=== PATIENT | female | born 1945 | race Caucasian/White ===

== ENCOUNTER 2017-04-23 18:10 | Observation (INO) | payer MEDICARE, MEDICAID ==
[2017-04-23 18:56] LABS: #Lymphocytes 0.5 thou/uL (1.20-3.40); #Monocytes 0.3 thou/uL (0.11-0.59); %Basophils 0.3 % (0.0-1.0); %Eosinophils 0.4 % (0.0-10.0); %Lymphocytes 10.9 % (21.0-51.0); %Monocytes 5.6 % (0.0-10.0); %Neutrophils 82.8 % (42.0-75.0); Hemoglobin 12.5 g/dL (12.0-16.0); Mean Corpuscular HGB CONC 33.1 g/dL (32.0-36.0); Mean Corpuscular Hemoglobin 30.3 pg (27.0-31.0); Mean Corpuscular Volume 91.7 fl (81.0-99.0); Mean Platelet Volume 7.9 fL (7.4-10.4); Platelet Count 213 thou/uL (130-400); RBC Distribution Width 12.5 % (11.5-14.5); Red Blood Cell (RBC) Count 4.12 mill/uL (4.20-5.40); White Blood Cell (WBC) Count 4.9 thou/uL (4.8-10.8)
[2017-04-23 19:16] LABS: ALT (SGPT) 9 U/L (8-55); AST (SGOT) 16 U/L (5-34); Albumin 3.4 g/dL (3.4-4.8); Alkaline Phosphatase 47 U/L (40-150); Anion Gap 11 mmol/L (10-20); BUN (Urea Nitrogen) 34 mg/dL (9.8-20.1); Bilirubin, Total 0.5 mg/dL (0.2-1.2); Calc. Creatinine Clearance 0 mL/min (70-130); Calcium 9.2 mg/dL (7.8-10.44); Carbon Dioxide 28 mmol/L (23-31); Chloride 104 mmol/L (98-107); Estimated GFR-MDRD 40; Globulin 3.8 g/dL (2.4-3.5); Glucose 77 mg/dL (80-115); Potassium 3.3 mmol/L (3.5-5.1); Protein, Total 7.2 g/dL (6.0-8.3); Sodium 140 mmol/L (136-145)
[2017-04-23] MEDS ORDERED: Dextrose 50% Abboject 50 ML SYRINGE ONE (21:06)
[2017-04-23] MEDS ORDERED: Acetaminophen 325 MG TAB PO PRN (22:46)
[2017-04-23] MEDS ORDERED: HumaLOG 300 UNITS/3 ML VIAL SC PRN (22:46)
[2017-04-23] MEDS ORDERED: Dextrose 50% Abboject 50 ML SYRINGE SLOW IVP PRN (22:46)
[2017-04-23] MEDS ORDERED: Ondansetron ODT 4 MG TAB PO PRN (22:46)
[2017-04-23] MEDS ORDERED: Dextrose 5% in Water 1,000 ML IV PRN (22:46)
[2017-04-23 22:51] LABS: Bilirubin Negative (Negative); Blood, Urine Negative (Negative); Clarity CLEAR (Clear); Glucose, Urine (Dipstick) Negative (Negative); Leukocyte Negative (Negative); Nitrite Negative (Negative); Protein, Urine (Dipstick) Negative (Neg-Trace)
[2017-04-24 00:01] VITALS: BMI 32.3
[2017-04-24] MEDS: Dextrose 5 %-0.45 % NaCl 1,000 ML IV SCH ×2 (01:16→17:02)
[2017-04-24 06:41] LABS: Anion Gap 11 mmol/L (10-20); Carbon Dioxide 27 mmol/L (23-31); Chloride 107 mmol/L (98-107); Potassium 3.5 mmol/L (3.5-5.1); Sodium 141 mmol/L (136-145)
[2017-04-24 06:49] LABS: BUN (Urea Nitrogen) 32 mg/dL (9.8-20.1); Calc. Creatinine Clearance 54 mL/min (70-130); Estimated GFR-MDRD 44; Glucose 99 mg/dL (80-115)
--- NOTE | 2017-04-24 08:11 | HP ---
CHIEF COMPLAINT: Hypoglycemia. HISTORY OF PRESENT ILLNESS: The patient is a 72-year-old female with fairly advanced dementia, who p resents with hypoglycemia. Present was the patient's son who was able to give her history as the cindy nance has fairly advanced dementia and was not able to confirm details. Per the patient's son, the irene beaver has had fairly large amount of weight loss recently due to issues with forgetting to eat due to her dementia. The patient's granddaughter does take care of the patient and tries to manage her car e. The patient has been taking oral medications for her diabetes. She is currently on glimepiride 2 mg only once a day; however, she has been on much higher dose in the past. The patient was brought to the hospital due to increasing confusion and slurred speech; however, this has improved when her b lood sugar has improved. Her blood sugar was in the 50s when she first presented. She was given D50 and this momentarily improved her blood sugar; however, it has since gone down agai n. PAST MEDICAL HISTORY: Significant for type 2 diabetes, dementia, hyperlipidemia, hypertension, as we ll as gout. PAST SURGICAL HISTORY: The patient has had prior appendectomy and hernia repair. SOCIAL HISTORY: The patient currently lives at home with her son and granddaughters. REVIEW OF SYSTEMS: Unable to obtain due to dementia. LABORATORY AND X-RAY DATA: The patient's CBC, white count was 4.9, H&H 12 and 37 with a platelet of 213. Sodium was 140, potassium 3.3, chloride 104, bicarb 28, BUN 34, creatinine 1.3 with a glucose o f 77. HOME MEDICATIONS: The patient was on glimepiride, amlodipine, quinapril, fenofibrate, torsemide, hyd rochlorothiazide, metoprolol, colchicine, and Premarin cream. PHYSICAL EXAMINATION: VITAL SIGNS: Blood pressure 131/64, pulse 69, respirations 16, temperature is 97.6. The patient is saturating 100% on room air. PHYSICAL EXAMINATION: GENERAL: The patient is awake and alert; however, she is not oriented to time or place. She does re member her name. HEENT: Pupils equal, round, and reactive to light and accommodation. Extraocular muscles intact. T Ms are clear. No throat. NECK: No JVD. No lymphadenopathy. HEART: Regular rate and rhythm. LUNGS: Clear to auscultation bilaterally. ABDOMEN: Positive bowel sounds. Soft, nontender, nondistended. EXTREMITIES: No clubbing, cyanosis, or edema. NEUROLOGIC: Cranial nerves II-XII are grossly intact. As stated above, she is only oriented to her name. PSYCHIATRIC: The patient is cooperative and pleasant. ASSESSMENT AND PLAN: 1. Hypoglycemia secondary to poor p.o. intake from dementia, as well as recent weight loss from this . We will go ahead and hold her oral anti-hyperglycemics and most likely as I have told her son, we will stop this altogether. Continue with D5 half normal for now to improve blood sugar and maintain on sliding scale only. 2. Advanced dementia. Continue supportive care. 3. Hypertension. Continue on current meds. Hold her ARB due to renal function until trended. 4. Prior cardiac history. Hold torsemide for now as the patient may be volume depleted from poor p. o. intake, as demonstrated also by her elevated creatinine and continue to monitor. 5. CODE STATUS: The patient is a FULL CODE per son.
[2017-04-24] MEDS ORDERED: Prevnar 13-Val Conj/PF 0.5 ML SYRINGE IM ONE (09:00)
[2017-04-24] MEDS ORDERED: FLU VACC TS2017-18 (>65YR) 0.5 ML SYRINGE IM ONE (09:00)
[2017-04-24] MEDS: Enoxaparin Sodium 30 MG/0.3 ML SYRINGE SC SCH (09:41)
[2017-04-24] MEDS: Famotidine/PF 20 mg/2ml Vial SLOW IVP SCH (09:54)
[2017-04-24] MEDS ORDERED: Nystatin Powder 15 GM BOT TOP PRN (14:42)
--- NOTE | 2017-04-24 15:45 | PDOC.PN ---
- Subjective Encounter Start Date: 04/24/17 Encounter Start Time: 15:42 CC: Hypoglycemis Sub: Pt is eating better, but still has low blood sugars - Objective Resuscitation Status: Resuscitation Status FULL:Full Resuscitation Vital Signs & Weight: Vital Signs (12 hours) Temp Pulse Resp BP Pulse Ox 04/24/17 11:52 98.0 F 69 16 123/79 98 04/24/17 08:00 98.3 F 98 20 115/74 99 04/24/17 04:00 98.0 F 69 20 124/72 99 Weight Admit Weight 176 lb 9 oz Weight 176 lb 9 oz I&O: 04/23/17 04/24/17 04/25/17 06:59 06:59 06:59 Intake Total 2 Balance 2 Result Diagrams: 04/23/17 18:48 04/24/17 05:00 Additional Labs: Accuchecks 04/24/17 04/24/17 04/23/17 11:27 04:45 22:19 POC Glucose 78 104 102 Phys Exam - Physical Examination Constitutional: NAD HEENT: moist MMs Neck: no JVD Respiratory: no wheezing, no rales, no rhonchi Cardiovascular: RRR, no significant murmur Gastrointestinal: soft, non-tender, positive bowel sounds Musculoskeletal: no edema Neurological: non-focal awake, sitting in chair, follows commands Psychiatric: normal affect Skin: no rash -: poistive yeast under breasts per RN Dx/Plan - Plan Pt is 72 yrs old female 1. Hypoglycemia: Encourage po intake Will continue MIV fluids for now Will continue to check blood sugars.Blood sugars stable at present. 2. HTN: Monitor bp closely Will start pt on norvasc 5mg daily 3. Candidiasis: Will start nystatin topical powder 4. H/O Dementia: Monitor for now case d/w pt & RN
[2017-04-24] MEDS ORDERED: Lorazepam 1 MG TAB PO PRN (15:54)
[2017-04-24] MEDS: Nystatin Powder 15 GM BOT TOP SCH ×2 (17:02→19:34)
[2017-04-24] MEDS: Colchicine 0.6 MG TAB PO SCH (19:34)
[2017-04-25] MEDS: Enoxaparin Sodium 30 MG/0.3 ML SYRINGE SC SCH (08:05)
[2017-04-25] MEDS: Colchicine 0.6 MG TAB PO SCH ×2 (08:06→20:33)
[2017-04-25] MEDS: Famotidine/PF 20 mg/2ml Vial SLOW IVP SCH (08:06)
[2017-04-25] MEDS: Fenofibrate Nanocrystallized 145 MG TAB PO SCH (08:07)
[2017-04-25] MEDS: Amlodipine 5 MG TAB PO SCH (08:07)
[2017-04-25] MEDS: Nystatin Powder 15 GM BOT TOP SCH ×3 (08:24→20:34)
--- NOTE | 2017-04-25 10:33 | PDOC.PN ---
- Subjective Encounter Start Date: 04/25/17 Encounter Start Time: 11:00 cc: hypoglycemia sub: Pt is still confused, currently needs sitter 12/10 - Objective Resuscitation Status: Resuscitation Status FULL:Full Resuscitation Vital Signs & Weight: Vital Signs (12 hours) Temp Pulse Resp BP Pulse Ox 04/25/17 08:07 69 04/25/17 08:00 97.6 F 81 20 138/79 100 Weight Admit Weight 176 lb 9 oz Weight 176 lb 9 oz I&O: 04/24/17 04/25/17 04/26/17 06:59 06:59 06:59 Intake Total 1402 360 Balance 1402 360 Result Diagrams: 04/25/17 10:48 04/25/17 10:48 Additional Labs: Accuchecks 04/25/17 04/24/17 04/24/17 05:04 20:10 16:37 POC Glucose 123 H 82 73 04/24/17 11:27 POC Glucose 78 Dx/Plan - Plan Physical Examination Constitutional: NAD, awake, sitting in chair, not oriented HEENT: moist MMs Neck: no JVD Respiratory: no wheezing, no rales, no rhonchi Cardiovascular: RRR, no significant murmur Gastrointestinal: soft, non-tender, positive bowel sounds Musculoskeletal: no edema Neurological: non-focal awake, sitting in chair, follows some commands Psychiatric: normal affect, positive sitter Skin: -: poistive yeast under breasts per RN Dx/Plan - Plan Pt is 72 yrs old female 1. Hypoglycemia: Encourage po intake blood sugars improving. will dc miv fluids Continue to check blood sugars. 2. HTN: Monitor bp closely continue norvasc 5mg daily 3. Candidiasis: continue nystatin topical powder and wound care 4. H/O Dementia: Monitor for now CM consult to evaluate home situation and PT/OT eval for possible SNF case d/w pt & RN
[2017-04-25 11:01] LABS: #Basophils 0.1 thou/uL (0.0-0.2); #Eosinphils 0.1 thou/uL (0.0-0.7); #Lymphocytes 1.6 thou/uL (1.20-3.40); #Monocytes 0.4 thou/uL (0.11-0.59); #Neutrophils 2.9 thou/uL (1.40-6.50); %Basophils 1.1 % (0.0-1.0); %Monocytes 8.6 % (0.0-10.0); %Neutrophils 57.3 % (42.0-75.0); Hemoglobin 11.9 g/dL (12.0-16.0); Mean Corpuscular HGB CONC 32.9 g/dL (32.0-36.0); Mean Corpuscular Hemoglobin 30.3 pg (27.0-31.0); Mean Corpuscular Volume 92.1 fl (81.0-99.0); Platelet Count 245 thou/uL (130-400); RBC Distribution Width 12.5 % (11.5-14.5); Red Blood Cell (RBC) Count 3.93 mill/uL (4.20-5.40)
[2017-04-25 11:22] LABS: Anion Gap 10 mmol/L (10-20); BUN (Urea Nitrogen) 24 mg/dL (9.8-20.1); Calc. Creatinine Clearance 53 mL/min (70-130); Carbon Dioxide 26 mmol/L (23-31); Chloride 105 mmol/L (98-107); Estimated GFR-MDRD 43; Glucose 106 mg/dL (80-115); Potassium 3.7 mmol/L (3.5-5.1); Sodium 137 mmol/L (136-145)
[2017-04-25] MEDS: Dextrose 5 %-0.45 % NaCl 1,000 ML IV SCH (14:26)
[2017-04-26 05:08] LABS: #Eosinphils 0.1 thou/uL (0.0-0.7); #Lymphocytes 1.1 thou/uL (1.20-3.40); #Monocytes 0.3 thou/uL (0.11-0.59); #Neutrophils 2.2 thou/uL (1.40-6.50); %Basophils 0.6 % (0.0-1.0); %Eosinophils 1.9 % (0.0-10.0); %Lymphocytes 28.7 % (21.0-51.0); %Monocytes 8.1 % (0.0-10.0); %Neutrophils 60.7 % (42.0-75.0); Hemoglobin 11.4 g/dL (12.0-16.0); Mean Corpuscular HGB CONC 32.6 g/dL (32.0-36.0); Mean Corpuscular Hemoglobin 29.8 pg (27.0-31.0); Mean Corpuscular Volume 91.3 fl (81.0-99.0); Mean Platelet Volume 8.2 fL (7.4-10.4); Platelet Count 206 thou/uL (130-400); RBC Distribution Width 12.5 % (11.5-14.5); Red Blood Cell (RBC) Count 3.82 mill/uL (4.20-5.40); White Blood Cell (WBC) Count 3.7 thou/uL (4.8-10.8)
[2017-04-26 05:50] LABS: Anion Gap 13 mmol/L (10-20); BUN (Urea Nitrogen) 28 mg/dL (9.8-20.1); Calc. Creatinine Clearance 54 mL/min (70-130); Calcium 8.9 mg/dL (7.8-10.44); Carbon Dioxide 22 mmol/L (23-31); Chloride 106 mmol/L (98-107); Estimated GFR-MDRD 44; Glucose 95 mg/dL (80-115); Potassium 3.9 mmol/L (3.5-5.1); Sodium 137 mmol/L (136-145)
[2017-04-26] MEDS: Amlodipine 5 MG TAB PO SCH (08:47)
[2017-04-26] MEDS: Colchicine 0.6 MG TAB PO SCH (09:02)
[2017-04-26] MEDS: Fenofibrate Nanocrystallized 145 MG TAB PO SCH (09:02)
[2017-04-26] MEDS: Nystatin Powder 15 GM BOT TOP SCH ×2 (09:03→15:52)
[2017-04-26] MEDS: Enoxaparin Sodium 30 MG/0.3 ML SYRINGE SC SCH (09:04)
[2017-04-26] MEDS: Famotidine/PF 20 mg/2ml Vial SLOW IVP SCH (09:05)
[2017-04-26] MEDS: Dextrose 5 %-0.45 % NaCl 1,000 ML IV SCH (12:19)
--- NOTE | 2017-04-26 13:31 | PDOC.PN ---
- Subjective Encounter Start Date: 04/26/17 Encounter Start Time: 13:35 Subjective: No complaints but limited by dementia -: Reportedly had behavioral issues yesterday but no acute events overnight - Objective Resuscitation Status: Resuscitation Status FULL:Full Resuscitation MAR Reviewed: Yes Vital Signs & Weight: Vital Signs (12 hours) Temp Pulse Resp BP BP Pulse Ox 04/26/17 08:47 50 L 114/70 04/26/17 08:00 97.9 F 50 L 18 114/70 99 Weight Admit Weight 176 lb 9 oz Weight 176 lb 9 oz I&O: 04/25/17 04/26/17 04/27/17 06:59 06:59 06:59 Intake Total 1402 1320 Balance 1402 1320 Result Diagrams: 04/26/17 03:38 04/26/17 03:38 Additional Labs: Accuchecks 04/26/17 04/26/17 04/25/17 11:25 04:36 20:05 POC Glucose 90 82 110 04/25/17 17:05 POC Glucose 92 Phys Exam - Physical Examination Constitutional: NAD HEENT: PERRLA, moist MMs, sclera anicteric Neck: supple, full ROM Respiratory: no wheezing, no rales, no rhonchi, clear to auscultation bilateral Cardiovascular: RRR, no significant murmur, no rub Gastrointestinal: soft, non-tender, no distention, positive bowel sounds Musculoskeletal: no edema, pulses present Psychiatric: normal affect Deviation from normal: ALert. Oriented to person only. Skin: no rash, normal turgor Dx/Plan (1) Hypoglycemia Code(s): E16.2 - HYPOGLYCEMIA, UNSPECIFIED Status: Acute Comment: Resolved. Likely 2/2 poor PO intake and using diabetes medications. Continue SSI (2) Dementia Code(s): F03.90 - UNSPECIFIED DEMENTIA WITHOUT BEHAVIORAL DISTURBANCE Status: Acute Qualifiers: Dementia type: unspecified type Dementia behavioral disturbance: with behavioral disturbance Qualified Code(s): F03.91 - Unspecified dementia with behavioral disturbance Comment: Sitter on board. Continue supportive care. Delirium precautions. (3) Gout Code(s): M10.9 - GOUT, UNSPECIFIED Status: Acute Qualifiers: Gout site: unspecified site Chronicity: chronic Presence of tophus: with tophus Comment: Not in acute flare. Continue home medications. Monitor renal function. (4) HTN (hypertension) Code(s): I10 - ESSENTIAL (PRIMARY) HYPERTENSION Status: Acute Qualifiers: Hypertension type: essential hypertension Qualified Code(s): I10 - Essential (primary) hypertension Comment: At goal. Continue amlodipine and metoprolol. (5) Type 2 diabetes mellitus Status: Acute Qualifiers: Diabetes mellitus complication status: with unspecified complications Diabetes mellitus terminal worker insulin use: without terminal worker use Qualified Code( s): E11.8 - Type 2 diabetes mellitus with unspecified complications Comment: Admitted hypoglycemic. Oral hypoglycemics being held. Continue SSI and monitor. - Plan cont current plan of care, PT/OT, director of social services, DVT proph w/lovenox CM to work on placement options. * .
[2017-04-26 17:00] VITALS: BP 110/71; TEMP 97.4
--- NOTE | 2017-04-26 18:43 | PDOC.EVN ---
Event Note - Event Note Event Note: Spoke to Martin Mcmahon about medication change- metoprolol has been changed from 50 mg to 25 mg daily
[2017-04-26] MEDS ORDERED: Potassium Chloride 10 MEQ TAB PO SCH (21:00)
--- NOTE | 2017-04-27 06:53 | DIS ---
DATE OF ADMISSION: 04/23/2017 DATE OF DISCHARGE: 04/26/2017 PRIMARY DISCHARGE DIAGNOSIS: Hypoglycemia. SECONDARY DIAGNOSES: Type 2 diabetes mellitus, advanced dementia, hypertension, gout, and hyperlipid emia. HISTORY OF PRESENT ILLNESS: A 72-year-old female with fairly advanced dementia who presented to the emergency room with hypoglycemia. The patient's son stated that she had large amounts of weight loss frequently due to issues before getting to eat. Granddaughter takes care of her and tries to manage her care. They have been taking oral medications for diabetes and was on glimepiride 2 mg once a da y; however, had been on a much higher dose in the past. She was brought to the emergency room due to increased confusion, slurred speech and found to have blood glucose in the 50s. She was given D50 a nd IV fluids with dextrose with subsequent improvement in her mental status. HOSPITAL COURSE: She received amps of D50 with eventual resolution of hypoglycemia. Her oral hypogl ycemics were held and she was placed on sliding scale insulin. The patient continued to improve. On the day of discharge, she was alert and oriented x1, back to her baseline. Family saw the patient a nd reports that she was back to her baseline and were willing to take the patient home for further ca re, which was in her best interest. She has a history of dementia and would benefit from being in a familiar environment. DISCHARGE MEDICATIONS: Vitamin E 400 units oral daily, potassium chloride 10 mEq oral twice a day, n ystatin powder applied topically 3 times daily, metoprolol succinate 25 mg oral daily, lorazepam 2 mg oral at bedtime as needed for anxiety/agitation, omega 3/DHA/EPA/fish oil 1 capsule oral daily, feno fibrate [id number] mg oral daily, ergocalciferol 50,000 units oral as directed, estrogens conju gated vaginally at bedtime, colchicine 0.6 mg oral twice a day, amlodipine 10 mg oral, which was ruiz ged to 5 mg oral daily, torsemide 100 mg orally daily as needed for edema. Medications that were dis continued included quinapril 40 mg b.i.d. daily, hydrochlorothiazide 12.5 mg daily, and glimepiride 2 mg every morning with breakfast. PHYSICAL EXAMINATION: Vital signs at the time of discharge, temperature 97.9, pulse 55, respiratory rate 18, oxygen saturation 95% on room air, blood pressure of 110/71. Physical examination refer to today's progress note. LABORATORY DATA: WBC 3.7, hemoglobin 11.4, platelet count 206. Sodium 130.7, potassium 3.9, chlorid e 106, carbon dioxide 22, anion gap 13, BUN 28, creatinine 1.2. CONSULTS: None. IMAGING: None. PROCEDURES: None. DIET: Heart healthy diabetic diet. FOLLOWUP: Follow up with her primary care physician within 1 week of discharge. ACTIVITY: As tolerated. At the time of discharge including chart review and documentation 65 minute s.
--- NOTE | 2017-05-29 19:19 | EKG ---
Test Reason : Blood Pressure : / mmHG Vent. Rate : 063 BPM Atrial Rate : 063 BPM P-R Int : 270 ms QRS Dur : 096 ms QT Int : 396 ms P-R-T Axes : -22 -04 005 degrees QTc Int : 405 ms Sinus rhythm with 1st degree A-V block Anterolateral infarct , age undetermined Abnormal ECG Confirmed by CRYSTAL HIGUERA ([id number]), video news editor CHAPO DE DIOS ([id number]) on 05/29/2017 7:19:08 PM Referred By: PAULIE HIGUERA Confirmed By:CRYSTAL HIGUERA
== END 2017-04-26 17:43 | disposition home or self-care (01) ==
LOC: ERS 18:10 → T4-A 21:43
PROVIDERS: ADMIT Hospitalist; ATTEND Hospitalist
DX: E11.649 Type 2 diabetes mellitus with hypoglycemia without coma (principal); G30.9 Alzheimer's disease, unspecified; F02.80 Dementia in other diseases classified elsewhere, unspecified severity, without behavioral disturbance, psychotic disturbance, mood disturbance, and anxiety; E78.5 Hyperlipidemia, unspecified; I10 Essential (primary) hypertension; M10.9 Gout, unspecified; B37.9 Candidiasis, unspecified; R63.4 Abnormal weight loss; Z68.32 Body mass index [BMI] 32.0-32.9, adult; Z79.84 Long term (current) use of oral hypoglycemic drugs; Z79.899 Other long term (current) drug therapy; Z88.5 Allergy status to narcotic agent; Z90.49 Acquired absence of other specified parts of digestive tract; Z98.890 Other specified postprocedural states
CPT/HCPCS: 51701; 80048 ×3; 80053; 81003; 82962 ×4; 85025 ×3; 90670; 93005; 94760; 96361 ×2; 96372 ×3; 96374; 96375; 96376; 97139 ×4; 99285; G0008; G0009; G0378 ×2; G8978; G8979; G8980; Q2036; 36415; 36416; 90471; 90682; A4353; J1650; S0028

== ENCOUNTER 2017-09-06 15:52 | Inpatient (IN) | payer MEDICARE, MEDICAID ==
[2017-09-06 17:00] LABS: #Lymphocytes 0.9 thou/uL (1.20-3.40); #Monocytes 0.6 thou/uL (0.11-0.59); #Neutrophils 10.3 thou/uL (1.40-6.50); %Basophils 0.2 % (0.0-1.0); %Eosinophils 0.1 % (0.0-10.0); %Lymphocytes 7.9 % (21.0-51.0); %Monocytes 4.8 % (0.0-10.0); Hemoglobin 12.2 g/dL (12.0-16.0); Mean Corpuscular HGB CONC 34.1 g/dL (32.0-36.0); Mean Corpuscular Hemoglobin 29.6 pg (27.0-31.0); Mean Corpuscular Volume 86.7 fl (81.0-99.0); Mean Platelet Volume 7.6 fL (7.4-10.4); Platelet Count 258 thou/uL (130-400); RBC Distribution Width 12.9 % (11.5-14.5); Red Blood Cell (RBC) Count 4.14 mill/uL (4.20-5.40); White Blood Cell (WBC) Count 11.8 thou/uL (4.8-10.8)
[2017-09-06 17:22] LABS: ALT (SGPT) 15 U/L (8-55); AST (SGOT) 40 U/L (5-34); Albumin 3.3 g/dL (3.4-4.8); Alkaline Phosphatase 51 U/L (40-150); Anion Gap 15 mmol/L (10-20); BUN (Urea Nitrogen) 47 mg/dL (9.8-20.1); Bilirubin, Total 0.8 mg/dL (0.2-1.2); CK (CPK) 743 U/L (29-168); Calc. Creatinine Clearance 0 mL/min (70-130); Calcium 8.8 mg/dL (7.8-10.44); Carbon Dioxide 24 mmol/L (23-31); Chloride 99 mmol/L (98-107); Estimated GFR-MDRD 36; Glucose 140 mg/dL (80-115); Potassium 3.5 mmol/L (3.5-5.1); Protein, Total 7.3 g/dL (6.0-8.3); Sodium 134 mmol/L (136-145)
[2017-09-06 17:27] LABS: Troponin I Less than 0.010 ng/mL (< 0.028)
[2017-09-06 17:31] LABS: CKMB 12.9 ng/mL (0-6.6)
[2017-09-06 17:46] LABS: Bilirubin Negative (Negative); Blood, Urine Negative (Negative); Clarity CLEAR (Clear); Glucose, Urine (Dipstick) Negative (Negative); Leukocyte Trace (Negative); Nitrite Negative (Negative); Protein, Urine (Dipstick) Negative (Neg-Trace); Specific Gravity, Urine 1.014 (1.002-1.036); pH, Urine 5.5 (5.0-9.0)
[2017-09-06 17:47] LABS: Hyaline Casts/LPF 4-6 HYALINE CAST LPF (0-3 Hyaline); WBC/HPF 0-3 HPF (0-3)
[2017-09-06 17:52] LABS: Yeast-AUWi Flag 27.1 (0-25.0)
--- NOTE | 2017-09-06 17:53 | RAD ---
RADIOGRAPH CHEST 1 VIEW: HISTORY: A 72-year-old female with hypotension. FINDINGS: The thoracic aorta is tortuous and ectatic. There is no evidence of air space density, pneumothorax, or pulmonary edema. The lateral costophrenic angles are sharp. IMPRESSION: 1) No acute pulmonary findings. 2) Ectasia of thoracic aorta. sayra [] POS: [facility]
[2017-09-06 18:04] LABS: Bacteria/HPF 1+ HPF (None Seen); RBC/HPF 0-3 HPF (0-3); Yeast-All Forms None Seen HPF (None Seen)
[2017-09-06] MEDS ORDERED: cefTRIAXone\\ROCEPHIN 2 GM VIAL ONE (18:41)
[2017-09-06] MEDS ORDERED: Ondansetron ODT 4 MG TAB SL PRN (20:06)
[2017-09-06] MEDS ORDERED: Ondansetron HCl/PF 4 MG/2 ML Vial IVP PRN (20:06)
[2017-09-06] MEDS ORDERED: Sodium Chloride 0.9% 1,000 ML IV SCH (20:15)
[2017-09-06] MEDS ORDERED: Acetaminophen 325 MG TAB PO PRN (20:37)
[2017-09-06] MEDS ORDERED: Ondansetron ODT 4 MG TAB PO PRN (20:37)
[2017-09-06] MEDS ORDERED: hydrALAZINE 20 MG/ML VIAL SLOW IVP PRN (20:37)
[2017-09-06] MEDS ORDERED: Nystatin Powder 15 GM BOT TOP PRN (20:37)
--- NOTE | 2017-09-06 20:56 | PDOC.EVN ---
Event Note - Event Note Event Note: Will need to verify code status, unclear- ER notes document DNR, but I am not sure who they spoke with and there is no family at bedside.
[2017-09-06] MEDS ORDERED: Famotidine 20 MG TAB PO SCH (21:00)
[2017-09-06 21:14] LABS: Troponin I Less than 0.010 ng/mL (< 0.028)
[2017-09-06] MEDS: Lorazepam 1 MG TAB PO PRN (22:26)
[2017-09-06] MEDS: Docusate 100 MG CAP PO SCH (22:27)
[2017-09-06] MEDS: Sodium Chloride 0.9% 1,000 ML IV SCH (22:28)
[2017-09-06] MEDS: Nystatin Powder 15 GM BOT TOP PRN (22:32)
[2017-09-06 22:50] LABS: Troponin I Less than 0.010 ng/mL (< 0.028)
[2017-09-07] MEDS ORDERED: Ipratropium Bromide 2.5 ml Neb ONE (01:49)
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
[2017-09-07 05:38] LABS: #Lymphocytes 0.6 thou/uL (1.20-3.40); #Monocytes 0.5 thou/uL (0.11-0.59); #Neutrophils 8.6 thou/uL (1.40-6.50); %Eosinophils 0.1 % (0.0-10.0); %Lymphocytes 6.3 % (21.0-51.0); %Monocytes 5.2 % (0.0-10.0); %Neutrophils 88.4 % (42.0-75.0); Hemoglobin 10.7 g/dL (12.0-16.0); Mean Corpuscular HGB CONC 33.1 g/dL (32.0-36.0); Mean Corpuscular Hemoglobin 29.1 pg (27.0-31.0); Mean Corpuscular Volume 87.9 fl (81.0-99.0); Mean Platelet Volume 7.5 fL (7.4-10.4); Platelet Count 178 thou/uL (130-400); RBC Distribution Width 12.9 % (11.5-14.5); Red Blood Cell (RBC) Count 3.67 mill/uL (4.20-5.40); White Blood Cell (WBC) Count 9.8 thou/uL (4.8-10.8)
[2017-09-07 05:50] LABS: Anion Gap 9 mmol/L (10-20); BUN (Urea Nitrogen) 38 mg/dL (9.8-20.1); CK (CPK) 497 U/L (29-168); Calc. Creatinine Clearance 55 mL/min (70-130); Calcium 8.2 mg/dL (7.8-10.44); Carbon Dioxide 28 mmol/L (23-31); Chloride 102 mmol/L (98-107); Estimated GFR-MDRD 50; Glucose 128 mg/dL (80-115); Sodium 136 mmol/L (136-145)
[2017-09-07 05:54] LABS: Potassium 2.9 mmol/L (3.5-5.1)
[2017-09-07] MEDS: Potassium Chloride 20 MEQ TAB PO SCH ×2 (06:30→07:25)
[2017-09-07] MEDS: Docusate 100 MG CAP PO SCH ×2 (09:16→21:48)
[2017-09-07] MEDS: Sodium Chloride 0.9% 1,000 ML IV SCH (09:17)
[2017-09-07] MEDS: Enoxaparin Sodium 30 MG/0.3 ML SYRINGE SC SCH (09:18)
--- NOTE | 2017-09-07 11:03 | PDOC.PN ---
- Subjective Encounter Start Date: 09/07/17 Encounter Start Time: 11:01 Ms. Diamond was seen today in follow-up. She is resting now. I am informed by the nursing staff that she was agitated last night. She was given Lorazepam last night and is still a bit sleepy this morning. - Objective Resuscitation Status: Resuscitation Status FULL:Full Resuscitation MAR Reviewed: Yes Vital Signs & Weight: Vital Signs (12 hours) Temp Pulse Resp BP Pulse Ox 09/07/17 04:00 98.2 F 81 18 118/56 L 98 Weight Admit Weight 159 lb 11.2 oz Weight 159 lb 9.6 oz Result Diagrams: 09/07/17 05:02 09/07/17 05:02 Phys Exam - Physical Examination HEENT: PERRLA Respiratory: no wheezing, no rales, no rhonchi, clear to auscultation bilateral Cardiovascular: RRR, no significant murmur, no rub Gastrointestinal: soft, non-tender, positive bowel sounds Musculoskeletal: no edema Dx/Plan (1) Dehydration Code(s): E86.0 - DEHYDRATION Status: Acute (2) HTN (hypertension) Code(s): I10 - ESSENTIAL (PRIMARY) HYPERTENSION Status: Acute Qualifiers: Hypertension type: essential hypertension Qualified Code(s): I10 - Essential (primary) hypertension Comment: At goal. Continue amlodipine and metoprolol. (3) Type 2 diabetes mellitus Status: Acute Qualifiers: Diabetes mellitus retirement insulin use: without intermission coordinator use Diabetes mellitus complication status: with unspecified complications Qualified Code(s) : E11.8 - Type 2 diabetes mellitus with unspecified complications Comment: Admitted hypoglycemic. Oral hypoglycemics being held. Continue SSI and monitor. - Plan * Dehydration- has improved * Hypokalemia- will need to replace. Her IV is back in so will replace IV * Severe Intertigo- will continue Nystatin topical * HTN- will re-start her blood pressure medications * DM- re-start Glipizide, and add a SSI.
[2017-09-07] MEDS ORDERED: Dextrose 5% in Water 1,000 ML IV PRN (11:16)
[2017-09-07] MEDS ORDERED: Potassium Chloride 40 MEQ in Sodium Chloride 0.9% 250 ML 250 ML IVPB SCH (11:30)
[2017-09-07 18:23] LABS: Bilirubin Negative (Negative); Blood, Urine Negative (Negative); Clarity CLEAR (Clear); Glucose, Urine (Dipstick) Negative (Negative); Leukocyte Negative (Negative); Nitrite Negative (Negative); Protein, Urine (Dipstick) Negative (Neg-Trace); Specific Gravity, Urine 1.011 (1.002-1.036)
[2017-09-07] MEDS: Famotidine 20 MG TAB PO SCH (21:48)
[2017-09-07] MEDS: Potassium Chloride 10 MEQ TAB PO SCH (21:48)
[2017-09-07] MEDS: Lorazepam 1 MG TAB PO PRN (21:48)
[2017-09-08] MEDS: Sodium Chloride 0.9% 1,000 ML IV SCH ×3 (00:49→16:08)
[2017-09-08] MEDS: Amlodipine 10 MG TAB PO SCH (09:45)
[2017-09-08] MEDS: Docusate 100 MG CAP PO SCH ×2 (09:45→20:37)
[2017-09-08] MEDS: Enoxaparin Sodium 30 MG/0.3 ML SYRINGE SC SCH (09:45)
[2017-09-08] MEDS: Potassium Chloride 10 MEQ TAB PO SCH ×2 (09:45→20:37)
[2017-09-08] MEDS: Glimepiride 2 MG TAB PO SCH (09:45)
--- NOTE | 2017-09-08 12:06 | PQF ---
CLINICAL DOCUMENTATION IMPROVEMENT CLARIFICATION FORM: ICD-10 Updated PLEASE DO AN ADDENDUM TO THE PROGRESS NOTE WITH ANY DOCUMENTATION UPDATES OR ADDITIONS AND CARRY THROUGH TO DC SUMMARY. THANK YOU. DATE: 09/08/17 ATTN: Dr. Cortés Please exercise your independent, professional judgment in responding to the clarification form. Clinical indicators are provided on the bottom of this form for your review Please check appropriate box(s): [ X ] Pressure Ulcer Stage III sacrum [ ] Pressure Ulcer sacrum (please specify stage) [ ] No pressure ulcer diagnosis [ ] Other diagnosis [ ] Unable to determine In addition, please specify: Present on Admission (POA): [ X ] Yes [ ] No [ ] Unable to determine For continuity of documentation, please document condition throughout progress notes and discharge summary. Thank You. CLINICAL INDICATORS - SIGNS / SYMPTOMS / LABS WOUND CARE ASSESSMENT 09/07 @ 0917: SACRUM. HEALING STAGE III NURSING ASSESSMENT 09/07 2000: LOWER SACROCOCCYGEAL PRESSURE ULCER. UNSTAGEABLE. WCT TO TREAT UPPER SACROCOCCYGEAL PRESSURE ULCER UNSTAGEABLE WCT TO TREAT RISKS: H&P 09/06: HX OF ADVANCED DEMENTIA. DM. HTN. SIGNIFICANT MUSCLE WASTING IN THE LOWER EXTREMITIES. SEVERE INTERTRIGO. ACUTE RENAL FAILURE 2/2 VOLUME DEPLETION W/ ELEVATED CREATININE. TREATMENT: ORDER 09/06: WOUND CARE EVAL/ TREAT WC ASSESSMENT: SPECIALTY BED - LOW AIR LOSS MATTRESS (This form is maintained as a part of the permanent medical record) 2014 [employer]. All Rights Reserved Mia Watson RN, BSN [email or web address] Office: [phone] [facility]ENTER[facility]iley
--- NOTE | 2017-09-08 14:08 | PDOC.PN ---
- Subjective Encounter Start Date: 09/08/17 Encounter Start Time: 14:06 Ms. Diamond was seen in follow-up. she is confused. She does not have any complaints. She is reported to have eaten well. - Objective Resuscitation Status: Resuscitation Status FULL:Full Resuscitation MAR Reviewed: Yes Vital Signs & Weight: Vital Signs (12 hours) Temp Pulse Resp BP BP Pulse Ox 09/08/17 11:25 97.4 F L 67 18 108/68 99 09/08/17 09:45 67 110/68 09/08/17 08:00 97.4 F L 67 18 99 09/08/17 07:51 98.7 F 67 18 110/68 99 09/08/17 05:00 99.0 F 78 16 102/59 L 100 Weight Admit Weight 159 lb 11.2 oz Weight 173 lb 2 oz I&O: 09/07/17 09/08/17 09/09/17 06:59 06:59 06:59 Intake Total 808 240 Output Total 575 Balance 233 240 Result Diagrams: 09/07/17 05:02 09/07/17 05:02 Additional Labs: Accuchecks 09/08/17 09/08/17 09/07/17 11:45 05:09 21:27 POC Glucose 124 H 112 H 178 H 09/07/17 16:57 POC Glucose 90 Phys Exam - Physical Examination HEENT: PERRLA Respiratory: no wheezing, no rales, no rhonchi, clear to auscultation bilateral Cardiovascular: RRR, no significant murmur, no rub Gastrointestinal: soft, non-tender, positive bowel sounds Musculoskeletal: edema present trace non-pitting edema Dx/Plan (1) Dehydration Code(s): E86.0 - DEHYDRATION Status: Acute (2) HTN (hypertension) Code(s): I10 - ESSENTIAL (PRIMARY) HYPERTENSION Status: Acute Qualifiers: Hypertension type: essential hypertension Qualified Code(s): I10 - Essential (primary) hypertension Comment: At goal. Continue amlodipine and metoprolol. (3) Type 2 diabetes mellitus Status: Acute Qualifiers: Diabetes mellitus detention insulin use: without intermodal owner operator truck driver use Diabetes mellitus complication status: with unspecified complications Qualified Code(s) : E11.8 - Type 2 diabetes mellitus with unspecified complications Comment: Admitted hypoglycemic. Oral hypoglycemics being held. Continue SSI and monitor. - Plan * Severe Intertrigo- continue Nystatin * Sacral decubitus ulcer which is unstageable- continue local wound care * Urinary retention- she had trouble voiding, and had over 1 liter of urine retained- will continue Dhillon catheter, consider voiding trial later , once the wounds in the pereneum have improved * DM- blood glucose is stable * Hypokalemia- will repeat serum potassium, and supplement if needed.
[2017-09-08 14:19] LABS: Anion Gap 13 mmol/L (10-20); BUN (Urea Nitrogen) 24 mg/dL (9.8-20.1); Calc. Creatinine Clearance 77 mL/min (70-130); Calcium 8.1 mg/dL (7.8-10.44); Carbon Dioxide 21 mmol/L (23-31); Chloride 104 mmol/L (98-107); Estimated GFR-MDRD 67; Glucose 49 mg/dL (80-115); Sodium 134 mmol/L (136-145)
[2017-09-08] MEDS: Dextrose 50% Abboject 50 ML SYRINGE SLOW IVP PRN (14:22)
[2017-09-08] MEDS: Dextrose 5% in Water 1,000 ML IV SCH (19:34)
[2017-09-08] MEDS: Famotidine 20 MG TAB PO SCH (20:37)
[2017-09-09] MEDS: Dextrose 50% Abboject 50 ML SYRINGE SLOW IVP PRN (06:26)
[2017-09-09] MEDS: Amlodipine 10 MG TAB PO SCH (09:16)
[2017-09-09] MEDS: Potassium Chloride 10 MEQ TAB PO SCH ×2 (09:16→21:13)
[2017-09-09] MEDS: Docusate 100 MG CAP PO SCH ×2 (09:16→21:13)
[2017-09-09] MEDS: Enoxaparin Sodium 30 MG/0.3 ML SYRINGE SC SCH (09:16)
[2017-09-09] MEDS: Glimepiride 2 MG TAB PO SCH (09:16)
[2017-09-09] MEDS: Dextrose 5% in Water 1,000 ML IV SCH (15:13)
--- NOTE | 2017-09-09 15:18 | PDOC.PN ---
- Subjective Encounter Start Date: 09/09/17 Encounter Start Time: 15:16 Ms. Diamond was seen today in follow-up. She does not have any complaints. She has advanced dementia, and is not able to express her concerns. - Objective Resuscitation Status: Resuscitation Status FULL:Full Resuscitation MAR Reviewed: Yes Vital Signs & Weight: Vital Signs (12 hours) Temp Pulse Resp BP Pulse Ox 09/09/17 12:39 98.3 F 72 16 111/70 99 09/09/17 11:47 98.0 F 72 14 113/70 99 09/09/17 09:16 75 09/09/17 08:11 98.4 F 75 12 116/70 98 09/09/17 08:00 98.4 F 75 12 98 09/09/17 04:00 98.0 F 66 22 H 112/67 99 Weight Admit Weight 159 lb 11.2 oz Weight 185 lb I&O: 09/08/17 09/09/17 09/10/17 06:59 06:59 06:59 Intake Total 808 2800 Output Total 575 2550 Balance 233 250 Result Diagrams: 09/07/17 05:02 09/08/17 13:16 Additional Labs: Accuchecks 09/09/17 09/09/17 09/09/17 11:20 06:33 06:26 POC Glucose 144 H 154 H 52 L* 09/09/17 09/09/17 09/08/17 05:52 00:23 21:09 POC Glucose 51 L* 190 H 78 09/08/17 09/08/17 09/08/17 20:15 18:36 16:13 POC Glucose 53 L* 66 L 66 L Phys Exam - Physical Examination HEENT: PERRLA Respiratory: no wheezing, no rales, no rhonchi, clear to auscultation bilateral Cardiovascular: RRR, no significant murmur, no rub Gastrointestinal: soft, non-tender, positive bowel sounds Musculoskeletal: no edema Dx/Plan (1) Dehydration Code(s): E86.0 - DEHYDRATION Status: Acute (2) HTN (hypertension) Code(s): I10 - ESSENTIAL (PRIMARY) HYPERTENSION Status: Acute Qualifiers: Hypertension type: essential hypertension Qualified Code(s): I10 - Essential (primary) hypertension Comment: At goal. Continue amlodipine and metoprolol. (3) Type 2 diabetes mellitus Status: Acute Qualifiers: Diabetes mellitus lobsterman insulin use: without detention use Diabetes mellitus complication status: with unspecified complications Qualified Code(s) : E11.8 - Type 2 diabetes mellitus with unspecified complications Comment: Admitted hypoglycemic. Oral hypoglycemics being held. Continue SSI and monitor. - Plan * DM- patient has john paul having low glucose readings- will discontinue Amaryl, and monitor, she may need a sliding scale only * Severe Intertrigo- continue Nystatin cream * Sacral Decubitus- unstageable- continue local wound care * Continue other supportive care, and await outcome of APS assessment before discharge.
[2017-09-09] MEDS: Famotidine 20 MG TAB PO SCH (21:13)
[2017-09-10 09:43] VITALS: BMI 32.8
[2017-09-10] MEDS: Potassium Chloride 10 MEQ TAB PO SCH ×2 (10:04→21:14)
[2017-09-10] MEDS: Docusate 100 MG CAP PO SCH ×2 (10:05→21:15)
[2017-09-10] MEDS: Enoxaparin Sodium 30 MG/0.3 ML SYRINGE SC SCH (10:05)
[2017-09-10] MEDS: Amlodipine 10 MG TAB PO SCH (10:05)
[2017-09-10] MEDS: Dextrose 5% in Water 1,000 ML IV SCH (11:29)
[2017-09-10] MEDS: Dextrose 50% Abboject 50 ML SYRINGE SLOW IVP PRN (14:25)
--- NOTE | 2017-09-10 15:21 | PRG ---
DATE OF SERVICE: 09/10/2017 SUBJECTIVE: The patient is seen and examined at the bedside. She is showing significant amount of d ementia. She is not able to answer my questions properly, but she tries to follow my commands. She was supposed to be discharged home, but we are waiting for Adult Protective Services' final decision on this case and she started running hypoglycemic glucose levels, and a decision was made about furth er investigation and additional 24-hour to be spent in the hospital. OBJECTIVE: VITAL SIGNS: Blood pressure is 133/85, pulse is 73, temperature is 97.6, respiratory rate is 18, O2 saturation 98% on room air. HEENT: Head is atraumatic, normocephalic. Eyes are PERRLA. Conjunctivae pinkish. Oral mucosa is m oist. NECK: Supple, no lymphadenopathy. Thyroid is not palpable. LUNGS: Clear. HEART: S1 and S2 normal, no S3, no S4. ABDOMEN: Soft, nontender, nondistended. Bowel sounds are present, no organomegaly. EXTREMITIES: No clubbing, cyanosis, or edema. NEUROLOGICAL EXAMINATION: The patient is demented. She is able to follow my simple commands, but ot herwise she is not able to participate in discussion with me. LABORATORY DATA: Labs none except for glycemia, which is ranging from 54 to 148 in the last 24 hours . IMPRESSION: 1. Dehydration, corrected. 2. Diabetes mellitus, type 2, on oral hypoglycemic agents at home. 3. Hypotension. PLAN: As I mentioned above, we are waiting for APS's final report and the patient is hypoglycemic, s o the discharge was postponed. She is getting D50 1 amp along with her D5 water 50 mL per hour IV. I will check her C-peptide level and insulin level, but this is most likely related to Amaryl use. S o as mentioned above, the discharge is postponed, because of that.
[2017-09-10] MEDS ORDERED: Ondansetron HCl/PF 4 MG/2 ML Vial SLOW IVP PRN (18:14)
[2017-09-10] MEDS: Dextrose 5 % And 0.9 % NaCl 1,000 ML IV SCH (18:35)
[2017-09-10] MEDS: Famotidine 20 MG TAB PO SCH (21:14)
[2017-09-10 21:42] LABS: Bilirubin Negative (Negative); Blood, Urine Negative (Negative); Clarity CLEAR (Clear); Glucose, Urine (Dipstick) 100 mg/dL (Negative); Leukocyte Small (Negative); Nitrite Negative (Negative); Protein, Urine (Dipstick) Negative (Neg-Trace); Specific Gravity, Urine 1.018 (1.002-1.036); Urobilinogen 0.2 mg/dL (0.2-1.0); pH, Urine 5.5 (5.0-9.0)
[2017-09-10 21:44] LABS: Bacteria/HPF None Seen HPF (None Seen); Hyaline Casts/LPF 4-6 HYALINE CAST LPF (0-3 Hyaline); Pathc Cast-AUWi Flag 1.88 (0-2.49); Squamous Epithelial 0-3 HPF (0-3); WBC/HPF 0-3 HPF (0-3)
[2017-09-11] MEDS: Dextrose 5 % And 0.9 % NaCl 1,000 ML IV SCH ×3 (04:48→17:22)
[2017-09-11] MEDS: Amlodipine 10 MG TAB PO SCH (08:27)
[2017-09-11] MEDS: Docusate 100 MG CAP PO SCH ×2 (08:28→21:43)
[2017-09-11] MEDS: Enoxaparin Sodium 30 MG/0.3 ML SYRINGE SC SCH (08:28)
[2017-09-11] MEDS: Potassium Chloride 10 MEQ TAB PO SCH ×2 (08:28→21:43)
[2017-09-11 09:16] LABS: Hemoglobin 10.5 g/dL (12.0-16.0); Mean Corpuscular Volume 87.7 fL (78.0-98.0); Platelet Count 252 thou/uL (130-400); RBC Distribution Width 13.2 % (11.5-14.5); Red Blood Cell (RBC) Count 3.62 mill/uL (4.20-5.40); White Blood Cell (WBC) Count 8.6 thou/uL (4.8-10.8)
[2017-09-11 09:41] LABS: Anion Gap 10 mmol/L (10-20); BUN (Urea Nitrogen) 16 mg/dL (9.8-20.1); Calc. Creatinine Clearance 91 mL/min (70-130); Calcium 7.9 mg/dL (7.8-10.44); Carbon Dioxide 21 mmol/L (23-31); Chloride 106 mmol/L (98-107); Estimated GFR-MDRD 75; Glucose 161 mg/dL (80-115); Potassium 4.6 mmol/L (3.5-5.1); Sodium 132 mmol/L (136-145)
--- NOTE | 2017-09-11 12:47 | PDOC.PN ---
- Subjective Encounter Start Date: 09/11/17 Encounter Start Time: 12:52 PAtient seen and examined. Admitted w dehydration and had hypoglycemia 2/2 oral hypoglycemics. No complaints today. No acute events overnight. - Objective Resuscitation Status: Resuscitation Status FULL:Full Resuscitation MAR Reviewed: Yes Vital Signs & Weight: Vital Signs (12 hours) Temp Pulse Resp BP BP Pulse Ox 09/11/17 10:54 97.8 F 68 16 115/76 99 09/11/17 08:27 58 L 108/70 09/11/17 08:00 98.1 F 58 L 18 09/11/17 07:55 98.1 F 58 L 18 108/70 97 09/11/17 04:00 98.1 F 56 L 22 H 117/79 100 Weight Admit Weight 159 lb 11.2 oz Weight 185 lb I&O: 09/10/17 09/11/17 09/12/17 06:59 06:59 06:59 Intake Total 2470 1716 580 Output Total 3050 2150 Balance -580 -434 580 Result Diagrams: 09/11/17 08:54 09/11/17 08:54 Additional Labs: Accuchecks 09/11/17 09/11/17 09/11/17 10:55 04:38 00:54 POC Glucose 135 H 174 H 220 H 09/10/17 09/10/17 09/10/17 20:19 16:18 15:09 POC Glucose 312 H 145 H 106 09/10/17 14:17 POC Glucose 54 L* Phys Exam - Physical Examination Constitutional: NAD HEENT: moist MMs, sclera anicteric Neck: supple, full ROM Respiratory: no wheezing, no rales, no rhonchi, clear to auscultation bilateral Cardiovascular: RRR, no significant murmur, no rub Gastrointestinal: soft, non-tender, no distention, positive bowel sounds Musculoskeletal: no edema, pulses present Oriented x 1. Unable to cooperate w exam. Psychiatric: normal affect Dx/Plan (1) Dementia Code(s): F03.90 - UNSPECIFIED DEMENTIA WITHOUT BEHAVIORAL DISTURBANCE Status: Acute Qualifiers: Dementia type: unspecified type Dementia behavioral disturbance: with behavioral disturbance Qualified Code(s): F03.91 - Unspecified dementia with behavioral disturbance Comment: Advanced; 1:1 Sitter on board. Continue supportive care. Delirium precautions. (2) HLD (hyperlipidemia) Code(s): E78.5 - HYPERLIPIDEMIA, UNSPECIFIED Status: Acute Qualifiers: Hyperlipidemia type: unspecified Qualified Code(s): E78.5 - Hyperlipidemia , unspecified (3) HTN (hypertension) Code(s): I10 - ESSENTIAL (PRIMARY) HYPERTENSION Status: Chronic Qualifiers: Hypertension type: essential hypertension Qualified Code(s): I10 - Essential (primary) hypertension Comment: At goal. Continue amlodipine and metoprolol. (4) Hypoglycemia Code(s): E16.2 - HYPOGLYCEMIA, UNSPECIFIED Status: Resolved Comment: Resolved. (5) Type 2 diabetes mellitus Status: Chronic Qualifiers: Diabetes mellitus termite control servicer insulin use: without penitentiary use Diabetes mellitus complication status: with unspecified complications Qualified Code(s) : E11.8 - Type 2 diabetes mellitus with unspecified complications Comment: Continue SSI and monitor. - Plan cont current plan of care, social research assistant, DVT proph w/lovenox Awaiting final APS report. Continue current management. Review of Systems - Medications/Allergies Allergies/Adverse Reactions: Allergies Allergy/AdvReac Type Severity Reaction Status Date / Time codeine Allergy Verified 09/07/17 03:17 Medications: Current Medications Acetaminophen (Tylenol) 650 mg PO Q4H PRN PRN Reason: Headache/Fever or Pain Amlodipine Besylate (Norvasc) 10 mg PO DAILY [facility] Last Admin: 09/11/17 08:27 Dose: Not Given Dextrose/Water (Dextrose 50%) 25 gm SLOW IVP PRN PRN PRN Reason: Hypoglycemia Last Admin: 09/10/17 14:25 Dose: 25 gm Docusate Sodium (Colace) 100 mg PO BID [facility] Last Admin: 09/11/17 08:28 Dose: 100 mg Enoxaparin Sodium (Lovenox) 30 mg SC 0900 [facility] Last Admin: 09/11/17 08:28 Dose: 30 mg Famotidine (Pepcid) 20 mg PO QPM [facility] Last Admin: 09/10/17 21:14 Dose: 20 mg Glucagon (Glucagon) 1 mg IM PRN PRN PRN Reason: Hypoglycemia Hydralazine HCl (Apresoline) 10 mg SLOW IVP Q4H PRN PRN Reason: Systolic BP > 180 Dextrose/Water (D5w) 1,000 mls @ 0 mls/hr IV .Q0M PRN; As Directed PRN Reason: Hypoglycemia Dextrose/Sodium Chloride (D5 0.9% Ns) 1,000 mls @ 100 mls/hr IV .Q10H [facility] Last Admin: 09/11/17 04:48 Dose: 1,000 mls Insulin Human Lispro (Humalog) 0 units SC .MILD SLIDING SCALE PRN PRN Reason: Mild Correctional Scale Lorazepam (Ativan) 0.25 mg PO Q4H PRN PRN Reason: Anxiety/Agitation Last Admin: 09/07/17 21:48 Dose: 0.25 mg Metoprolol Succinate (Toprol Xl) 50 mg PO HS [facility] Last Admin: 09/10/17 21:15 Dose: 50 mg Nystatin (Mycostatin Powder) 0 gm TOP BID PRN PRN Reason: Topical Irritations Last Admin: 09/06/17 22:32 Dose: 1 applic Ondansetron HCl (Zofran Odt) 4 mg PO Q6H PRN PRN Reason: Nausea/Vomiting Ondansetron HCl (Zofran) 4 mg SLOW IVP Q8H PRN PRN Reason: Nausea/Vomiting Last Admin: 09/10/17 18:50 Dose: 4 mg Potassium Chloride (Klor-Con 10) 10 meq PO BID [facility] Last Admin: 09/11/17 08:28 Dose: 10 meq Sodium Chloride (Flush - Normal Saline) 10 ml IVF Q12HR [facility] Last Admin: 09/11/17 08:29 Dose: Not Given Sodium Chloride (Flush - Normal Saline) 10 ml IVF PRN PRN PRN Reason: Saline Flush Tramadol HCl (Ultram) 50 mg PO Q4H PRN PRN Reason: Moderate Pain (4-6) Vitamin E (Vitamin E) 400 units PO DAILY [facility] Last Admin: 09/11/17 09:11 Dose: 400 units
[2017-09-11] MEDS: HumaLOG 300 UNITS/3 ML VIAL SC PRN (17:26)
[2017-09-11] MEDS: Famotidine 20 MG TAB PO SCH (21:43)
[2017-09-12] MEDS: Dextrose 5 % And 0.9 % NaCl 1,000 ML IV SCH ×4 (00:15→21:10)
--- NOTE | 2017-09-12 02:54 | HP ---
HISTORY OF PRESENT ILLNESS: Ms. Diamond is a 72-year-old female who is demented. She is in assist ed care facility. She has been admitted 09/06/2017 by hospitalist service. I have been asked to see her regarding her sacral decubitus. She has 2 open wounds, the sinus tract is very tender and diffi cult to evaluate bedside. Plan at this time is to evaluate this to the operating room under anesthes ia on Wednesday. PAST MEDICAL HISTORY: The patient is an unreliable historian. Diabetes mellitus, dementia, hyperlip idemia, hypertension, gout. PAST SURGICAL HISTORY: Appendectomy, hernia repair. The patient lives at home with his son and bryson melendrez. FAMILY HISTORY: Not obtainable. REVIEW OF SYSTEMS: Not obtainable. MEDICATIONS LIST: Quinapril, potassium, omega 3, vitamin E, torsemide, metoprolol, fenofibrate, amlo dipine, hydrochlorothiazide, ascorbic acid. PHYSICAL EXAMINATION: VITAL SIGNS: 5 foot, 385 pounds, 32 BMI, 98.2 degrees, 61, 16, 108/72. LUNGS: Clear to auscultation. CARDIAC: Regular rate and rhythm without murmur or gallop. ABDOMEN: Obese, soft, nontender, pannus dependent. ABDOMEN: Slightly protuberant. EXTREMITIES: Unremarkable. Sacral wound without cellulitis with a small sinus tract with purulent d rainage. ASSESSMENT AND PLAN: Sacral wound. We will plan drainage under light anesthesia in a decubitus posi tion on Wednesday per wound care.
[2017-09-12] MEDS: Enoxaparin Sodium 30 MG/0.3 ML SYRINGE SC SCH (08:23)
[2017-09-12] MEDS: Docusate 100 MG CAP PO SCH ×3 (08:24→21:09)
[2017-09-12] MEDS: Potassium Chloride 10 MEQ TAB PO SCH (08:24)
[2017-09-12] MEDS: Amlodipine 10 MG TAB PO SCH ×2 (08:24→14:08)
[2017-09-12] MEDS ORDERED: Fentanyl 100 MCG/2 ML VIAL ONE (11:51)
[2017-09-12] MEDS ORDERED: Midazolam HCl 2 mg/2 ml Vial ONE (11:53)
[2017-09-12] MEDS ORDERED: Succinylcholine Chloride 20 MG/ML 10 ml SYRINGE FS ONE ×2 (11:58→16:24)
[2017-09-12] MEDS ORDERED: Lidocaine 2% 10 ML INJ ONE (12:21)
[2017-09-12] MEDS ORDERED: Bupivacaine HCl 0.5%/Epinephrine 1:200,000/PF 30 ml Vial ONE (12:21)
--- NOTE | 2017-09-12 12:41 | PDOC.PN ---
- Subjective Encounter Start Date: 09/12/17 Encounter Start Time: 12:39 Patient seen and examined. 72 F w advanced dementia admitted w dehydration and had hypoglycemia 2/2 oral hypoglycemics. No complaints today. No acute events overnight. - Objective Resuscitation Status: Resuscitation Status FULL:Full Resuscitation MAR Reviewed: Yes Vital Signs & Weight: Vital Signs (12 hours) Temp Pulse Resp BP BP Pulse Ox 09/12/17 08:24 70 127/77 09/12/17 08:00 98.0 F 70 16 127/77 99 09/12/17 04:00 98.2 F 77 18 119/73 98 Weight Admit Weight 159 lb 11.2 oz Weight 185 lb I&O: 09/11/17 09/12/17 09/13/17 06:59 06:59 06:59 Intake Total 1716 3990 Output Total 2150 800 Balance -434 3190 Result Diagrams: 09/11/17 08:54 09/11/17 08:54 Additional Labs: Accuchecks 09/12/17 09/12/17 09/11/17 09:52 04:14 20:36 POC Glucose 151 H 130 H 184 H 09/11/17 09/11/17 16:23 08:24 POC Glucose 170 H 143 H Phys Exam - Physical Examination Constitutional: NAD HEENT: moist MMs, sclera anicteric Neck: supple, full ROM Respiratory: no wheezing, no rales, no rhonchi, clear to auscultation bilateral Cardiovascular: RRR, no significant murmur, no rub Gastrointestinal: soft, non-tender, no distention, positive bowel sounds Musculoskeletal: no edema, pulses present Skin: no rash, normal turgor Dx/Plan (1) Dementia Code(s): F03.90 - UNSPECIFIED DEMENTIA WITHOUT BEHAVIORAL DISTURBANCE Status: Chronic Qualifiers: Dementia type: unspecified type Dementia behavioral disturbance: with behavioral disturbance Qualified Code(s): F03.91 - Unspecified dementia with behavioral disturbance Comment: Stable. Has advanced dementia; 1:1 Sitter on board. Continue supportive care. Delirium precautions. (2) HLD (hyperlipidemia) Code(s): E78.5 - HYPERLIPIDEMIA, UNSPECIFIED Status: Chronic Qualifiers: Hyperlipidemia type: unspecified Qualified Code(s): E78.5 - Hyperlipidemia , unspecified (3) HTN (hypertension) Code(s): I10 - ESSENTIAL (PRIMARY) HYPERTENSION Status: Chronic Qualifiers: Hypertension type: essential hypertension Qualified Code(s): I10 - Essential (primary) hypertension Comment: At goal. Continue amlodipine and metoprolol. (4) Type 2 diabetes mellitus Status: Chronic Qualifiers: Diabetes mellitus intermediate insulin use: without intermediate use Diabetes mellitus complication status: with unspecified complications Qualified Code(s) : E11.8 - Type 2 diabetes mellitus with unspecified complications Comment: Continue SSI and monitor. (5) Decubitus ulcer of coccyx Code(s): L89.159 - PRESSURE ULCER OF SACRAL REGION, UNSPECIFIED STAGE Status: Chronic Qualifiers: Pressure ulcer stage: unstageable Qualified Code(s): L89.150 - Pressure ulcer of sacral region, unstageable Comment: Scheduled for I and D by general surgery. - Plan cont current plan of care, social services manager, DVT proph w/lovenox PAS on board. Will follow up final report. CM also on board. Continue current management. Review of Systems - Medications/Allergies Allergies/Adverse Reactions: Allergies Allergy/AdvReac Type Severity Reaction Status Date / Time codeine Allergy Verified 09/07/17 03:17 Medications: Current Medications Acetaminophen (Tylenol) 650 mg PO Q4H PRN PRN Reason: Headache/Fever or Pain Amlodipine Besylate (Norvasc) 10 mg PO DAILY [facility] Last Admin: 09/12/17 08:24 Dose: Not Given Dextrose/Water (Dextrose 50%) 25 gm SLOW IVP PRN PRN PRN Reason: Hypoglycemia Last Admin: 09/10/17 14:25 Dose: 25 gm Docusate Sodium (Colace) 100 mg PO BID [facility] Last Admin: 09/12/17 08:24 Dose: Not Given Enoxaparin Sodium (Lovenox) 30 mg SC 0900 [facility] Last Admin: 09/12/17 08:23 Dose: Not Given Famotidine (Pepcid) 20 mg PO QPM [facility] Last Admin: 09/11/17 21:43 Dose: 20 mg Glucagon (Glucagon) 1 mg IM PRN PRN PRN Reason: Hypoglycemia Hydralazine HCl (Apresoline) 10 mg SLOW IVP Q4H PRN PRN Reason: Systolic BP > 180 Dextrose/Water (D5w) 1,000 mls @ 0 mls/hr IV .Q0M PRN; As Directed PRN Reason: Hypoglycemia Dextrose/Sodium Chloride (D5 0.9% Ns) 1,000 mls @ 100 mls/hr IV .Q10H [facility] Last Admin: 09/12/17 11:23 Dose: Not Given Insulin Human Lispro (Humalog) 0 units SC .MILD SLIDING SCALE PRN PRN Reason: Mild Correctional Scale Last Admin: 09/11/17 17:26 Dose: 2 unit Lorazepam (Ativan) 0.25 mg PO Q4H PRN PRN Reason: Anxiety/Agitation Last Admin: 09/07/17 21:48 Dose: 0.25 mg Metoprolol Succinate (Toprol Xl) 50 mg PO HS [facility] Last Admin: 09/11/17 21:42 Dose: Not Given Nystatin (Mycostatin Powder) 0 gm TOP BID PRN PRN Reason: Topical Irritations Last Admin: 09/06/17 22:32 Dose: 1 applic Ondansetron HCl (Zofran Odt) 4 mg PO Q6H PRN PRN Reason: Nausea/Vomiting Ondansetron HCl (Zofran) 4 mg SLOW IVP Q8H PRN PRN Reason: Nausea/Vomiting Last Admin: 09/10/17 18:50 Dose: 4 mg Potassium Chloride (Klor-Con 10) 10 meq PO BID [facility] Last Admin: 09/12/17 08:24 Dose: Not Given Sodium Chloride (Flush - Normal Saline) 10 ml IVF Q12HR [facility] Last Admin: 09/12/17 08:23 Dose: 10 ml Sodium Chloride (Flush - Normal Saline) 10 ml IVF PRN PRN PRN Reason: Saline Flush Last Admin: 09/11/17 17:24 Dose: 10 ml Tramadol HCl (Ultram) 50 mg PO Q4H PRN PRN Reason: Moderate Pain (4-6) Vitamin E (Vitamin E) 400 units PO DAILY [facility] Last Admin: 09/12/17 08:23 Dose: Not Given
[2017-09-12] MEDS: traMADol HCl 50 MG TAB PO PRN ×2 (15:24→21:18)
[2017-09-12] MEDS: Lorazepam 1 MG TAB PO PRN (15:53)
[2017-09-12] MEDS ORDERED: Lidocaine 1% PF 5 ML VIAL ONE (16:24)
[2017-09-12] MEDS ORDERED: PROPOFOL 200 MG/20 ML VIAL ONE (16:24)
[2017-09-12] MEDS ORDERED: PHENYLEPHRINE-NS 100 MCG/ML 10 ML SYRINGE ONE (16:24)
[2017-09-12] MEDS ORDERED: Metoclopramide HCl 10 MG/2 ML VIAL ONE (16:24)
[2017-09-12] MEDS ORDERED: Ondansetron HCl/PF 4 MG/2 ML Vial ONE (16:24)
--- NOTE | 2017-09-12 19:21 | OP ---
PREOPERATIVE DIAGNOSES: Sacral decubitus sinus tract with involved coccyx and sacrum with osteomyeli tis and purulent discharge decubitus wound in a nonmobile patient with dementia. POSTOPERATIVE DIAGNOSES: Sacral decubitus sinus tract with involved coccyx and sacrum with osteomyel itis and purulent discharge decubitus wound in a nonmobile patient with dementia. PROCEDURE: Incision and drainage of deep abscess, sacral area with debridement of skin, subcutaneous tissue, muscle, fascia, and bone, resecting the portion of the coccyx and sacrum. Wound left open b y secondary intention, wound care team applied wound VAC. SURGEON: Dr. Sonny Holm ANESTHESIA: TIVA local, 0.5% Marcaine with epinephrine, 30 mL, mixed with 2% Xylocaine, 10 mL PROCEDURE: The patient was taken to the operating room under anesthesia in the left lateral decubitu s position using beanbag. Her presacral area was prepared with ChloraPrep, draped in routine fashion . The patient has a sinus tract connecting to another sinus tract over the midline. These were open ed and revealing underlying cavity that communicated to the coccyx and sacrum. These bones were erod ed. They were debrided with the rongeurs to healthy bone, granulating, necrotic tissue debrided, ski n and subcutaneous tissue, muscle, fascia along with the bone. Hemostasis again with the cautery. C ultures have been submitted of the purulent material. The patient tolerated the procedure well.
[2017-09-12] MEDS: Famotidine 20 MG TAB PO SCH (21:09)
[2017-09-13] MEDS: Dextrose 5 % And 0.9 % NaCl 1,000 ML IV SCH ×3 (06:23→19:33)
[2017-09-13] MEDS: Enoxaparin Sodium 30 MG/0.3 ML SYRINGE SC SCH (10:22)
[2017-09-13] MEDS: Docusate 100 MG CAP PO SCH ×2 (10:23→21:32)
[2017-09-13] MEDS: Amlodipine 10 MG TAB PO SCH (10:23)
--- NOTE | 2017-09-13 11:13 | PDOC.PN ---
- Subjective Encounter Start Date: 09/13/17 Encounter Start Time: 11:11 Patient seen and examined. 72 F w advanced dementia admitted w dehydration and had hypoglycemia 2/2 oral hypoglycemics. She was taken to the OR on 09/12/17 for sacral decubitus ulcer I & D and found to have osteomyelitis with sacral decub sinus tract involving coccyx and sacrum. Tissue debrided and bone shaved to healthy bone. No complaints today. No acute events overnight. - Objective Resuscitation Status: Resuscitation Status FULL:Full Resuscitation Vital Signs & Weight: Vital Signs (12 hours) Temp Pulse Resp BP BP Pulse Ox 09/13/17 10:23 62 110/71 09/13/17 08:00 98 F 62 16 99 09/13/17 07:33 98 F 62 16 110/71 99 09/13/17 04:00 98.5 F 71 18 124/75 97 09/13/17 00:00 98.3 F 85 18 117/61 95 Weight Admit Weight 159 lb 11.2 oz Weight 185 lb I&O: 09/12/17 09/13/17 09/14/17 06:59 06:59 06:59 Intake Total 3990 3360 Output Total 800 1700 Balance 3190 1660 Result Diagrams: 09/11/17 08:54 09/11/17 08:54 Additional Labs: Accuchecks 09/13/17 09/13/17 09/12/17 04:41 00:45 20:52 POC Glucose 124 H 142 H 210 H 09/12/17 09/12/17 16:58 14:15 POC Glucose 218 H 99 Phys Exam - Physical Examination Constitutional: NAD HEENT: moist MMs, sclera anicteric Neck: supple, full ROM Respiratory: no wheezing, no rales, no rhonchi, clear to auscultation bilateral Cardiovascular: RRR, no significant murmur, no rub Gastrointestinal: soft, non-tender, no distention, positive bowel sounds Musculoskeletal: no edema, pulses present Neurological: non-focal, moves all 4 limbs Deviation from normal: AO x 1. Dx/Plan (1) Dementia Code(s): F03.90 - UNSPECIFIED DEMENTIA WITHOUT BEHAVIORAL DISTURBANCE Status: Chronic Qualifiers: Dementia type: unspecified type Dementia behavioral disturbance: with behavioral disturbance Qualified Code(s): F03.91 - Unspecified dementia with behavioral disturbance Comment: Stable. Has advanced dementia. Continue supportive care. Delirium precautions. (2) HLD (hyperlipidemia) Code(s): E78.5 - HYPERLIPIDEMIA, UNSPECIFIED Status: Chronic Qualifiers: Hyperlipidemia type: unspecified Qualified Code(s): E78.5 - Hyperlipidemia , unspecified (3) HTN (hypertension) Code(s): I10 - ESSENTIAL (PRIMARY) HYPERTENSION Status: Chronic Qualifiers: Hypertension type: essential hypertension Qualified Code(s): I10 - Essential (primary) hypertension Comment: At goal. Continue amlodipine and metoprolol. (4) Type 2 diabetes mellitus Status: Chronic Qualifiers: Diabetes mellitus group home insulin use: without group home use Diabetes mellitus complication status: with unspecified complications Qualified Code(s) : E11.8 - Type 2 diabetes mellitus with unspecified complications Comment: Continue SSI and monitor. (5) Decubitus ulcer of coccyx Code(s): L89.159 - PRESSURE ULCER OF SACRAL REGION, UNSPECIFIED STAGE Status: Chronic Qualifiers: Pressure ulcer stage: unstageable Qualified Code(s): L89.150 - Pressure ulcer of sacral region, unstageable Comment: Scheduled for I and D by general surgery. (6) Osteomyelitis Code(s): M86.9 - OSTEOMYELITIS, UNSPECIFIED Status: Acute Qualifiers: Osteomyelitis type: chronic, with draining sinus Osteomyelitis location: other site Qualified Code(s): M86.48 - Chronic osteomyelitis with draining sinus, other site - Plan cont current plan of care, school social worker, DVT proph w/lovenox APS services on board. Awaiting final report. Continue other management. No antibiotics indicated for Osteo since surgical intervention done and no clinical signs of infection. Trend ESR and CRP. f/u Surgery service recs f/u culture results. Review of Systems - Medications/Allergies Allergies/Adverse Reactions: Allergies Allergy/AdvReac Type Severity Reaction Status Date / Time codeine Allergy Verified 09/07/17 03:17 Medications: Current Medications Acetaminophen (Tylenol) 650 mg PO Q4H PRN PRN Reason: Headache/Fever or Pain Amlodipine Besylate (Norvasc) 10 mg PO DAILY [facility] Last Admin: 09/13/17 10:23 Dose: Not Given Dextrose/Water (Dextrose 50%) 25 gm SLOW IVP PRN PRN PRN Reason: Hypoglycemia Last Admin: 09/10/17 14:25 Dose: 25 gm Docusate Sodium (Colace) 100 mg PO BID [facility] Last Admin: 09/13/17 10:23 Dose: 100 mg Enoxaparin Sodium (Lovenox) 30 mg SC 0900 [facility] Last Admin: 09/13/17 10:22 Dose: 30 mg Famotidine (Pepcid) 20 mg PO QPM [facility] Last Admin: 09/12/17 21:09 Dose: 20 mg Glucagon (Glucagon) 1 mg IM PRN PRN PRN Reason: Hypoglycemia Hydralazine HCl (Apresoline) 10 mg SLOW IVP Q4H PRN PRN Reason: Systolic BP > 180 Dextrose/Water (D5w) 1,000 mls @ 0 mls/hr IV .Q0M PRN; As Directed PRN Reason: Hypoglycemia Dextrose/Sodium Chloride (D5 0.9% Ns) 1,000 mls @ 100 mls/hr IV .Q10H [facility] Last Admin: 09/13/17 06:55 Dose: 1,000 mls Insulin Human Lispro (Humalog) 0 units SC .MILD SLIDING SCALE PRN PRN Reason: Mild Correctional Scale Last Admin: 09/11/17 17:26 Dose: 2 unit Lorazepam (Ativan) 0.25 mg PO Q4H PRN PRN Reason: Anxiety/Agitation Last Admin: 09/12/17 15:53 Dose: 0.25 mg Metoprolol Succinate (Toprol Xl) 50 mg PO HS [facility] Last Admin: 09/12/17 21:09 Dose: 50 mg Nystatin (Mycostatin Powder) 0 gm TOP BID PRN PRN Reason: Topical Irritations Last Admin: 09/06/17 22:32 Dose: 1 applic Ondansetron HCl (Zofran Odt) 4 mg PO Q6H PRN PRN Reason: Nausea/Vomiting Ondansetron HCl (Zofran) 4 mg SLOW IVP Q8H PRN PRN Reason: Nausea/Vomiting Last Admin: 09/10/17 18:50 Dose: 4 mg Potassium Chloride (Klor-Con 10) 10 meq PO BID [facility] Last Admin: 09/12/17 08:24 Dose: Not Given Sodium Chloride (Flush - Normal Saline) 10 ml IVF Q12HR [facility] Last Admin: 09/13/17 10:24 Dose: 10 ml Sodium Chloride (Flush - Normal Saline) 10 ml IVF PRN PRN PRN Reason: Saline Flush Last Admin: 09/11/17 17:24 Dose: 10 ml Tramadol HCl (Ultram) 50 mg PO Q4H PRN PRN Reason: Moderate Pain (4-6) Last Admin: 09/12/17 21:18 Dose: 50 mg Vitamin E (Vitamin E) 400 units PO DAILY [facility] Last Admin: 09/12/17 14:09 Dose: 400 units
[2017-09-13] MEDS: HumaLOG 300 UNITS/3 ML VIAL SC PRN (12:34)
[2017-09-13] MEDS: Famotidine 20 MG TAB PO SCH (21:32)
[2017-09-14] MEDS: Dextrose 5 % And 0.9 % NaCl 1,000 ML IV SCH ×3 (02:44→21:48)
[2017-09-14 05:22] LABS: Hemoglobin 9.4 g/dL (12.0-16.0); Mean Corpuscular HGB CONC 32.7 g/dL (32.0-36.0); Mean Corpuscular Hemoglobin 29.1 pg (27.0-31.0); Platelet Count 243 thou/uL (130-400); RBC Distribution Width 13.6 % (11.5-14.5); Red Blood Cell (RBC) Count 3.21 mill/uL (4.20-5.40); White Blood Cell (WBC) Count 6.5 thou/uL (4.8-10.8)
[2017-09-14 05:41] LABS: Anion Gap 8 mmol/L (10-20); BUN (Urea Nitrogen) 14 mg/dL (9.8-20.1); Calc. Creatinine Clearance 104 mL/min (70-130); Carbon Dioxide 24 mmol/L (23-31); Chloride 109 mmol/L (98-107); Estimated GFR-MDRD 87; Glucose 90 mg/dL (80-115); Potassium 4.5 mmol/L (3.5-5.1); Sodium 136 mmol/L (136-145)
[2017-09-14] MEDS: Amlodipine 10 MG TAB PO SCH (09:58)
[2017-09-14] MEDS: Docusate 100 MG CAP PO SCH ×2 (09:59→20:58)
[2017-09-14] MEDS: Enoxaparin Sodium 30 MG/0.3 ML SYRINGE SC SCH (09:59)
--- NOTE | 2017-09-14 10:13 | PDOC.PN ---
- Subjective Encounter Start Date: 09/14/17 Encounter Start Time: 10:11 Patient seen and examined. 72 F w advanced dementia admitted w dehydration and had hypoglycemia 2/2 oral hypoglycemics. She was taken to the OR on 09/12/17 for sacral decubitus ulcer I & D and found to have osteomyelitis with sacral decub sinus tract involving coccyx and sacrum. Tissue debrided and bone shaved to healthy bone. Wound vac in place. No complaints today. No acute events overnight. - Objective Resuscitation Status: Resuscitation Status FULL:Full Resuscitation MAR Reviewed: Yes Vital Signs & Weight: Vital Signs (12 hours) Temp Pulse Resp BP BP Pulse Ox 09/14/17 09:58 69 129/78 09/14/17 07:38 96.8 F L 69 16 129/78 99 09/14/17 04:48 98.0 F Weight Admit Weight 159 lb 11.2 oz Weight 185 lb I&O: 09/13/17 09/14/17 09/15/17 06:59 06:59 06:59 Intake Total 3360 1900 Output Total 1700 800 Balance 1660 1100 Result Diagrams: 09/14/17 04:21 09/14/17 04:21 Additional Labs: Accuchecks 09/14/17 09/14/17 09/13/17 05:31 00:55 22:00 POC Glucose 93 182 H 135 H 09/13/17 09/13/17 16:42 11:17 POC Glucose 144 H 163 H Phys Exam - Physical Examination Constitutional: NAD HEENT: moist MMs, sclera anicteric Neck: supple, full ROM Respiratory: no wheezing, no rales, no rhonchi, clear to auscultation bilateral Cardiovascular: RRR, no significant murmur, no rub Gastrointestinal: soft, non-tender, no distention, positive bowel sounds Musculoskeletal: no edema, pulses present Alert. Oriented to person only. Unable to cooperate with exam Skin: no rash Dx/Plan (1) Osteomyelitis Code(s): M86.9 - OSTEOMYELITIS, UNSPECIFIED Status: Acute Qualifiers: Osteomyelitis type: chronic, with draining sinus Osteomyelitis location: other site Qualified Code(s): M86.48 - Chronic osteomyelitis with draining sinus, other site (2) Dementia Code(s): F03.90 - UNSPECIFIED DEMENTIA WITHOUT BEHAVIORAL DISTURBANCE Status: Chronic Qualifiers: Dementia type: unspecified type Dementia behavioral disturbance: with behavioral disturbance Qualified Code(s): F03.91 - Unspecified dementia with behavioral disturbance Comment: Stable. Has advanced dementia. Continue supportive care. Delirium precautions. (3) HLD (hyperlipidemia) Code(s): E78.5 - HYPERLIPIDEMIA, UNSPECIFIED Status: Chronic Qualifiers: Hyperlipidemia type: unspecified Qualified Code(s): E78.5 - Hyperlipidemia , unspecified (4) HTN (hypertension) Code(s): I10 - ESSENTIAL (PRIMARY) HYPERTENSION Status: Chronic Qualifiers: Hypertension type: essential hypertension Qualified Code(s): I10 - Essential (primary) hypertension Comment: At goal. Continue amlodipine and metoprolol. (5) Type 2 diabetes mellitus Status: Chronic Qualifiers: Diabetes mellitus building custodial supervisor insulin use: without half-way use Diabetes mellitus complication status: with unspecified complications Qualified Code(s) : E11.8 - Type 2 diabetes mellitus with unspecified complications Comment: Continue SSI and monitor. (6) Decubitus ulcer of coccyx Code(s): L89.159 - PRESSURE ULCER OF SACRAL REGION, UNSPECIFIED STAGE Status: Chronic Qualifiers: Pressure ulcer stage: unstageable Qualified Code(s): L89.150 - Pressure ulcer of sacral region, unstageable Comment: Wound vac in place. - Plan cont current plan of care, lozoya catheter, social work therapist, out of bed/ambulate , DVT proph w/lovenox Case management consult for home health. APS will assess patient's living situation once patient gets home from hospital. Review of Systems - Medications/Allergies Allergies/Adverse Reactions: Allergies Allergy/AdvReac Type Severity Reaction Status Date / Time codeine Allergy Verified 09/07/17 03:17 Medications: Current Medications Acetaminophen (Tylenol) 650 mg PO Q4H PRN PRN Reason: Headache/Fever or Pain Amlodipine Besylate (Norvasc) 10 mg PO DAILY [facility] Last Admin: 09/14/17 09:58 Dose: 10 mg Dextrose/Water (Dextrose 50%) 25 gm SLOW IVP PRN PRN PRN Reason: Hypoglycemia Last Admin: 09/10/17 14:25 Dose: 25 gm Docusate Sodium (Colace) 100 mg PO BID [facility] Last Admin: 09/14/17 09:59 Dose: 100 mg Enoxaparin Sodium (Lovenox) 30 mg SC 0900 [facility] Last Admin: 09/14/17 09:59 Dose: 30 mg Famotidine (Pepcid) 20 mg PO QPM [facility] Last Admin: 09/13/17 21:32 Dose: 20 mg Glucagon (Glucagon) 1 mg IM PRN PRN PRN Reason: Hypoglycemia Hydralazine HCl (Apresoline) 10 mg SLOW IVP Q4H PRN PRN Reason: Systolic BP > 180 Dextrose/Water (D5w) 1,000 mls @ 0 mls/hr IV .Q0M PRN; As Directed PRN Reason: Hypoglycemia Dextrose/Sodium Chloride (D5 0.9% Ns) 1,000 mls @ 100 mls/hr IV .Q10H [facility] Last Admin: 09/14/17 02:44 Dose: Not Given Insulin Human Lispro (Humalog) 0 units SC .MILD SLIDING SCALE PRN PRN Reason: Mild Correctional Scale Last Admin: 09/13/17 12:34 Dose: 2 unit Lorazepam (Ativan) 0.25 mg PO Q4H PRN PRN Reason: Anxiety/Agitation Last Admin: 09/12/17 15:53 Dose: 0.25 mg Metoprolol Succinate (Toprol Xl) 50 mg PO HS [facility] Last Admin: 09/13/17 21:32 Dose: 50 mg Nystatin (Mycostatin Powder) 0 gm TOP BID PRN PRN Reason: Topical Irritations Last Admin: 09/06/17 22:32 Dose: 1 applic Ondansetron HCl (Zofran Odt) 4 mg PO Q6H PRN PRN Reason: Nausea/Vomiting Ondansetron HCl (Zofran) 4 mg SLOW IVP Q8H PRN PRN Reason: Nausea/Vomiting Last Admin: 09/10/17 18:50 Dose: 4 mg Potassium Chloride (Klor-Con 10) 10 meq PO BID [facility] Last Admin: 09/12/17 08:24 Dose: Not Given Sodium Chloride (Flush - Normal Saline) 10 ml IVF Q12HR [facility] Last Admin: 09/14/17 10:01 Dose: 10 ml Sodium Chloride (Flush - Normal Saline) 10 ml IVF PRN PRN PRN Reason: Saline Flush Last Admin: 09/11/17 17:24 Dose: 10 ml Tramadol HCl (Ultram) 50 mg PO Q4H PRN PRN Reason: Moderate Pain (4-6) Last Admin: 09/12/17 21:18 Dose: 50 mg Vitamin E (Vitamin E) 400 units PO DAILY [facility] Last Admin: 09/14/17 10:00 Dose: Not Given
[2017-09-14] MEDS: Lorazepam 1 MG TAB PO PRN (11:17)
[2017-09-14] MEDS: traMADol HCl 50 MG TAB PO PRN (11:18)
--- NOTE | 2017-09-14 14:05 | PQF ---
CLINICAL DOCUMENTATION IMPROVEMENT CLARIFICATION FORM: ICD-10 Updated PLEASE DO AN ADDENDUM TO THE PROGRESS NOTE WITH ANY DOCUMENTATION UPDATES OR ADDITIONS AND CARRY THROUGH TO DC SUMMARY. THANK YOU. DATE: 09/14/17 ATTN: Dr. Holm Please exercise your independent, professional judgment in responding to the clarification form. Clinical indicators are provided on the bottom of this form for your review Please check appropriate box(s): [ ] Excisional Debridement: [ ] Excised [ ] Cut away [ ] Other: [ ] Non-excisional Debridement: (Removal by flushing, brushing, chemical, or washing) [ ] Incision and Drainage only (No Debridement): [ ] Other procedure diagnosis [ ] Unable to determine For continuity of documentation, please document condition throughout progress notes and discharge summary. Thank You. CLINICAL INDICATORS - SIGNS / SYMPTOMS / LABS 09/12 OPERATIVE NOTE: INCISION & DRAINAGE OF DEEP ABSCESS, SACRAL AREA W/ DEBRIDEMENT OF SKIN, SUBCUTANEOUS TISSUE, MUSCLE, FASCIA, & BONE, RESECTING THE PORTION OF THE COCCYX & SACRUM. THEY WERE DEBRIDED W/ THE RONGEURS TO HEALTHY BONE, GRANULATING, NECROTIC TISSUE DEBRIDED, SKIN & SUBCUTANEOUS TISSUE , MUSCLE, FASCIA ALONG W/ THE BONE. RISK FACTORS OPERATIVE NOTE 09/12: SACRAL DECUBITUS SINUS TRACT W/ INVOLVED COCCYX & SACRUM W/ OSTEOMYELITIS & PURULENT DISCHARGE DECUBITUS WOUND IN A NONMOBILE PT W/ DEMENTIA. TREATMENTS: OPERATIVE NOTE 09/12 : INCISION & DRAINAGE OF DEEP ABSCESS, SACRAL AREA W/ DEBRIDEMENT OF SKIN, SUBCUTANEOUS TISSUE, MUSCLE, FASCIA, & BONE, RESECTING THE PORTION OF THE COCCYX & SACRUM. ORDER 09/12: WCT/ DRESSING CHANGE: VAC APPLICATION TO COCCYX (This form is maintained as a part of the permanent medical record) 2014 [employer]. All Rights Reserved Mia Watson RN, BSN [email or web address] Office: [phone] [facility]
[2017-09-14] MEDS: Famotidine 20 MG TAB PO SCH (20:58)
[2017-09-14] MEDS: Nystatin Powder 15 GM BOT TOP PRN (21:12)
[2017-09-15] MEDS: Dextrose 5 % And 0.9 % NaCl 1,000 ML IV SCH (07:58)
[2017-09-15] MEDS: Enoxaparin Sodium 30 MG/0.3 ML SYRINGE SC SCH (07:58)
[2017-09-15] MEDS: Docusate 100 MG CAP PO SCH (07:59)
[2017-09-15] MEDS: Amlodipine 10 MG TAB PO SCH (07:59)
--- NOTE | 2017-09-15 09:49 | PDOC.PN ---
- Subjective Encounter Start Date: 09/15/17 Encounter Start Time: 09:47 Patient seen and examined. 72 F w advanced dementia admitted w dehydration and had hypoglycemia 2/2 oral hypoglycemics. She was taken to the OR on 09/12/17 for sacral decubitus ulcer I & D and found to have osteomyelitis with sacral decub sinus tract involving coccyx and sacrum. Tissue debrided and bone shaved to healthy bone. Wound vac in place. No complaints today. No acute events overnight. - Objective Resuscitation Status: Resuscitation Status FULL:Full Resuscitation MAR Reviewed: Yes Vital Signs & Weight: Vital Signs (12 hours) Temp Pulse Resp BP Pulse Ox 09/15/17 08:00 97.8 F 57 L 18 97 09/15/17 07:59 57 L 09/15/17 07:20 98.0 F 57 L 16 135/80 100 Weight Admit Weight 159 lb 11.2 oz Weight 185 lb I&O: 09/14/17 09/15/17 09/16/17 06:59 06:59 06:59 Intake Total 1900 400 240 Output Total 800 1000 Balance 1100 -600 240 Result Diagrams: 09/14/17 04:21 09/14/17 04:21 Additional Labs: Accuchecks 09/15/17 09/15/17 09/14/17 05:36 01:09 20:32 POC Glucose 136 H 120 H 115 H 09/14/17 09/14/17 17:01 11:23 POC Glucose 127 H 122 H Phys Exam - Physical Examination Constitutional: NAD HEENT: moist MMs, sclera anicteric Neck: supple, full ROM Respiratory: no wheezing, no rales, no rhonchi, clear to auscultation bilateral Cardiovascular: RRR, no significant murmur, no rub Gastrointestinal: soft, non-tender, no distention, positive bowel sounds Musculoskeletal: no edema, pulses present Neurological: non-focal Deviation from normal: Alert, Oriented to person only. Skin: no rash, normal turgor Dx/Plan (1) Osteomyelitis Code(s): M86.9 - OSTEOMYELITIS, UNSPECIFIED Status: Acute Qualifiers: Osteomyelitis type: chronic, with draining sinus Osteomyelitis location: other site Qualified Code(s): M86.48 - Chronic osteomyelitis with draining sinus, other site Comment: Stable. Wound vac in place. (2) Dementia Code(s): F03.90 - UNSPECIFIED DEMENTIA WITHOUT BEHAVIORAL DISTURBANCE Status: Chronic Qualifiers: Dementia type: unspecified type Dementia behavioral disturbance: with behavioral disturbance Qualified Code(s): F03.91 - Unspecified dementia with behavioral disturbance Comment: Stable. Has advanced dementia. Continue supportive care. Delirium precautions. (3) HLD (hyperlipidemia) Code(s): E78.5 - HYPERLIPIDEMIA, UNSPECIFIED Status: Chronic Qualifiers: Hyperlipidemia type: unspecified Qualified Code(s): E78.5 - Hyperlipidemia , unspecified (4) HTN (hypertension) Code(s): I10 - ESSENTIAL (PRIMARY) HYPERTENSION Status: Chronic Qualifiers: Hypertension type: essential hypertension Qualified Code(s): I10 - Essential (primary) hypertension Comment: At goal. Continue amlodipine and metoprolol. (5) Type 2 diabetes mellitus Status: Chronic Qualifiers: Diabetes mellitus intermediate insulin use: without intermediate use Diabetes mellitus complication status: with unspecified complications Qualified Code(s) : E11.8 - Type 2 diabetes mellitus with unspecified complications Comment: Continue SSI and monitor. (6) Decubitus ulcer of coccyx Code(s): L89.159 - PRESSURE ULCER OF SACRAL REGION, UNSPECIFIED STAGE Status: Chronic Qualifiers: Pressure ulcer stage: unstageable Qualified Code(s): L89.150 - Pressure ulcer of sacral region, unstageable Comment: Wound vac in place. - Plan cont current plan of care, DVT proph w/lovenox Medically ready for discharge. web content & social media manager working on outpatient wound vac. Will discharge once that is sorted out. Review of Systems - Medications/Allergies Allergies/Adverse Reactions: Allergies Allergy/AdvReac Type Severity Reaction Status Date / Time codeine Allergy Verified 09/07/17 03:17 Medications: Current Medications Acetaminophen (Tylenol) 650 mg PO Q4H PRN PRN Reason: Headache/Fever or Pain Amlodipine Besylate (Norvasc) 10 mg PO DAILY [facility] Last Admin: 09/15/17 07:59 Dose: 10 mg Dextrose/Water (Dextrose 50%) 25 gm SLOW IVP PRN PRN PRN Reason: Hypoglycemia Last Admin: 09/10/17 14:25 Dose: 25 gm Docusate Sodium (Colace) 100 mg PO BID [facility] Last Admin: 09/15/17 07:59 Dose: 100 mg Enoxaparin Sodium (Lovenox) 30 mg SC 0900 [facility] Last Admin: 09/15/17 07:58 Dose: 30 mg Famotidine (Pepcid) 20 mg PO QPM [facility] Last Admin: 09/14/17 20:58 Dose: 20 mg Glucagon (Glucagon) 1 mg IM PRN PRN PRN Reason: Hypoglycemia Hydralazine HCl (Apresoline) 10 mg SLOW IVP Q4H PRN PRN Reason: Systolic BP > 180 Dextrose/Water (D5w) 1,000 mls @ 0 mls/hr IV .Q0M PRN; As Directed PRN Reason: Hypoglycemia Dextrose/Sodium Chloride (D5 0.9% Ns) 1,000 mls @ 100 mls/hr IV .Q10H [facility] Last Admin: 09/15/17 07:58 Dose: Not Given Insulin Human Lispro (Humalog) 0 units SC .MILD SLIDING SCALE PRN PRN Reason: Mild Correctional Scale Last Admin: 09/13/17 12:34 Dose: 2 unit Lorazepam (Ativan) 0.25 mg PO Q4H PRN PRN Reason: Anxiety/Agitation Last Admin: 09/14/17 11:17 Dose: 0.25 mg Metoprolol Succinate (Toprol Xl) 50 mg PO HS [facility] Last Admin: 09/14/17 20:58 Dose: 50 mg Nystatin (Mycostatin Powder) 0 gm TOP BID PRN PRN Reason: Topical Irritations Last Admin: 09/14/17 21:12 Dose: 1 applic Ondansetron HCl (Zofran Odt) 4 mg PO Q6H PRN PRN Reason: Nausea/Vomiting Ondansetron HCl (Zofran) 4 mg SLOW IVP Q8H PRN PRN Reason: Nausea/Vomiting Last Admin: 09/10/17 18:50 Dose: 4 mg Potassium Chloride (Klor-Con 10) 10 meq PO BID [facility] Last Admin: 09/12/17 08:24 Dose: Not Given Sodium Chloride (Flush - Normal Saline) 10 ml IVF Q12HR [facility] Last Admin: 09/15/17 08:02 Dose: Not Given Sodium Chloride (Flush - Normal Saline) 10 ml IVF PRN PRN PRN Reason: Saline Flush Last Admin: 09/11/17 17:24 Dose: 10 ml Tramadol HCl (Ultram) 50 mg PO Q4H PRN PRN Reason: Moderate Pain (4-6) Last Admin: 09/14/17 11:18 Dose: 50 mg Vitamin E (Vitamin E) 400 units PO DAILY [facility] Last Admin: 09/15/17 08:02 Dose: 400 units
[2017-09-15 11:29] VITALS: TEMP 97.4
[2017-09-15 12:41] VITALS: BP 135/80
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
--- NOTE | 2017-09-17 15:32 | PQF ---
EVA MARTINEZ RICHARD D MD [id number] CLINICAL DOCUMENTATION IMPROVEMENT CLARIFICATION FORM: ICD-10 Updated PLEASE DO AN ADDENDUM TO THE PROGRESS NOTE WITH ANY DOCUMENTATION UPDATES OR ADDITIONS AND CARRY THROUGH TO DC SUMMARY. THANK YOU. DATE: 09/14/17 ATTN: Dr. Holm Please exercise your independent, professional judgment in responding to the clarification form. Clinical indicators are provided on the bottom of this form for your review Please check appropriate box(s): [ ] Excisional Debridement: [ ] Excised [ ] Cut away [ ] Other: [ ] Non- excisional Debridement: (Removal by flushing, brushing, chemical, or washing) [ ] Incision and Drainage only (No Debridement): [ ] Other procedure diagnosis [ ] Unable to determine For continuity of documentation, please document condition throughout progress notes and discharge summary. Thank You. CLINICAL INDICATORS - SIGNS / SYMPTOMS / LABS 09/12 OPERATIVE NOTE: INCISION & DRAINAGE OF DEEP ABSCESS, SACRAL AREA W/ DEBRIDEMENT OF SKIN, SUBCUTANEOUS TISSUE, MUSCLE, FASCIA, & BONE, RESECTING THE PORTION OF THE COCCYX & SACRUM. THEY WERE DEBRIDED W/ THE RONGEURS TO HEALTHY BONE, GRANULATING, NECROTIC TISSUE DEBRIDED, SKIN & SUBCUTANEOUS TISSUE, MUSCLE, FASCIA ALONG W/ THE BONE. RISK FACTORS OPERATIVE NOTE 09/12: SACRAL DECUBITUS SINUS TRACT WITH INVOLVED COCCYX & SACRUM W/ OSTEOMYELITIS & PURULENT DISCHARGE DECUBITUS WOUND IN A NONMOBILE PT WITH DEMENTIA. TREATMENTS: OPERATIVE NOTE 09/12 : INCISION & DRAINAGE OF DEEP ABSCESS, SACRAL AREA W/ DEBRIDEMENT OF SKIN, SUBCUTANEOUS TISSUE, MUSCLE, FASCIA, & BONE, RESECTING THE PORTION OF THE COCCYX & SACRUM. ORDER 09/12: WCT/ DRESSING CHANGE: VAC APPLICATION TO COCCYX THANK YOU, MIA (This form is maintained as a part of the permanent medical record) 2015 [employer]. All Rights Reserved Mia Watson RN, BSN [email or web address] Office: [phone] [facility]
== END 2017-09-15 16:32 | disposition home health service (06) | DRG 628 ==
LOC: ERS 15:52 → 2NO 19:26 → T4-B 09-07 20:43
PROVIDERS: ADMIT Internal Medicine; ATTEND Internal Medicine
PROC: 0QBS0ZZ Excision of Coccyx, Open Approach (ICD-10-PCS; principal; 2017-09-12)
PROC: 0QB10ZZ Excision of Sacrum, Open Approach (ICD-10-PCS; 2017-09-12)
DX: E11.69 Type 2 diabetes mellitus with other specified complication (principal); L89.153 Pressure ulcer of sacral region, stage 3; G93.40 Encephalopathy, unspecified; M86.8X8 Other osteomyelitis, other site; M62.82 Rhabdomyolysis; E11.649 Type 2 diabetes mellitus with hypoglycemia without coma; F03.90 Unspecified dementia, unspecified severity, without behavioral disturbance, psychotic disturbance, mood disturbance, and anxiety; E78.5 Hyperlipidemia, unspecified; I10 Essential (primary) hypertension; E86.0 Dehydration; N17.9 Acute kidney failure, unspecified; M62.569 Muscle wasting and atrophy, not elsewhere classified, unspecified lower leg; I95.9 Hypotension, unspecified; E87.6 Hypokalemia; R33.9 Retention of urine, unspecified
CPT/HCPCS: 36415; 36416; 51701; 71045; 80048; 80053; 81001; 81003; 81015; 82550; 82553; 83525; 83605; 83630; 83880; 84484; 84681; 85025; 85027; 85652; 86140; 87040; 87045; 87046; 87070; 87076; 87086; 87205; 87324; 87449; 87899; 93005; 96361; 96365; A4216; A4353; G8978-GP-CL; G8979-GP-CJ; G8987-GO-CN; G8988-GO-CL; J0670; J0696; J1650; J2001; J2250; J2405; J2704; J2765; J3010; J3480; J7050; J7644